=== PATIENT | female | born 2000 | race Two or more races ===

== ENCOUNTER 2023-03-29 14:33 | Emergency (ER) | payer OTHER ==
[~2023-03-29] VITALS: Ht 160 cm; Wt 56.7 kg
== END 2023-03-29 15:49 | disposition home or self-care (01) ==
LOC: ER 14:33
DX: J06.9 Acute upper respiratory infection, unspecified (principal)

== ENCOUNTER 2023-12-24 18:18 | Emergency (ER) | payer OTHER ==
[~2023-12-24] VITALS: Ht 160 cm; Wt 56.7 kg
[2023-12-24] MEDS ORDERED: LACTOBACILLUS ACIDOPHILUS 1 CAP CAP PO ONE (19:45)
[2023-12-24] MEDS ORDERED: 0.9 % SODIUM CHLORIDE 1,000 ML IV ONE (19:45)
[2023-12-24] MEDS ORDERED: ONDANSETRON HCL 2 MG/ML VIAL IV ONE (19:45)
[2023-12-24] MEDS ORDERED: FAMOTIDINE/PF 20 MG/2 ML VIAL IV ONE (19:45)
[2023-12-24 20:19] LABS: HEMATOCRIT 42.3 % (36.0-45.00); HEMOGLOBIN 14.5 g/dL (12.0-15.00); MEAN CORPUSCULAR HEMOGLOBIN 29.4 pg (27.00-32.0); MEAN CORPUSCULAR HGB CONC 34.2 g/dl (32.0-36.0); PLATELET COUNT 239 K/uL (150-450); RED BLOOD COUNT 4.92 M/uL (4.00-6.00); RED CELL DISTRIBUTION WIDTH 13.9 % (11.5-14.5)
[2023-12-24 20:43] LABS: ALBUMIN 4.2 gm/dL (3.4-5.0); BILIRUBIN TOTAL 0.6 mg/dL (0.3-1.2); CALCIUM 9.3 mg/dL (8.5-10.1); CREATININE SERUM 0.52 mg/dL (0.55-1.02); GFR 144.87; GLOBULINA 3.7 G/DL (2.4-3.5); POTASSIUM 3.29 mEq/L (3.5-5.1); TOTAL PROTEIN 7.9 gm/dL (6.4-8.2)
[2023-12-24 20:51] LABS: URINE APPEARANCE Clear; URINE BILIRRUBIN Negative (NEGATIVE); URINE BLOOD Negative; URINE COLOR Yellow; URINE GLUCOSE Negative (NEGATIVE); URINE LEUKOCYTE Trace; URINE NITRATE Negative; URINE PROTEIN Trace (NEGATIVE)
[2023-12-24 20:53] LABS: URINE BACTERIA 2241.5 uL (0.0-1933); URINE EPITHELIAL CELLS 33.2 uL (0.0-38.8); URINE RBC 112.9 uL (0.0-20.8)
[2023-12-24] MEDS ORDERED: ONDANSETRON ODT4 MG PO (21:15)
[2023-12-24] MEDS ORDERED: INTESTINEX680 M1 PO (21:15)
[2023-12-24] MEDS ORDERED: PEPCID AC20 MG PO (21:15)
== END 2023-12-24 21:28 ==
LOC: ER 18:19
PROVIDERS: Nurse Practitioner Family
DX: A05.9 Bacterial foodborne intoxication, unspecified (principal); Z20.822 Contact with and (suspected) exposure to COVID-19

== ENCOUNTER 2024-05-19 07:38 | Emergency (ER) | payer OTHER ==
[~2024-05-19] VITALS: Ht 162.6 cm; Wt 52.2 kg
[~2024-05-19 07:38] MED LIST: INTESTINEX680 M1 PO; ONDANSETRON ODT4 MG PO; PEPCID AC20 MG PO
[2024-05-19] MEDS ORDERED: 0.9 % SODIUM CHLORIDE 1,000 ML IV STA (08:28)
[2024-05-19 09:27] LABS: CREATININE SERUM 0.62 mg/dL (0.55-1.02); GFR 118.26; POTASSIUM 3.65 mEq/L (3.5-5.1)
[2024-05-19 09:52] LABS: URINE APPEARANCE Clear; URINE BILIRRUBIN Negative (NEGATIVE); URINE BLOOD Small; URINE COLOR Yellow; URINE GLUCOSE Negative (NEGATIVE); URINE KETONE Trace (NEGATIVE); URINE LEUKOCYTE Negative; URINE NITRATE Negative; URINE PROTEIN 30 (NEGATIVE)
[2024-05-19 09:54] LABS: URINE BACTERIA 372.9 uL (0.0-1933); URINE EPITHELIAL CELLS 34.3 uL (0.0-38.8); URINE RBC 65.9 uL (0.0-20.8); URINE WBC 4.3 uL (0.0-23.2)
[2024-05-19 10:01] LABS: URINE CAST 0.61 uL (0.0-1.40)
[2024-05-19 10:22] LABS: URINE CRYSTALS FEW /HPF; URINE MUCUS HEAVY
[2024-05-19 14:30] LABS: HEMATOCRIT 42.7 % (36.0-45.00); HEMOGLOBIN 14.8 g/dL (12.0-15.00); MEAN CELL VOLUME 86.9 fL (80.00-100.00); MEAN CORPUSCULAR HEMOGLOBIN 30.2 pg (27.00-32.0); MEAN CORPUSCULAR HGB CONC 34.8 g/dl (32.0-36.0); PLATELET COUNT 263 K/uL (150-450); RED BLOOD COUNT 4.91 M/uL (4.00-6.00); RED CELL DISTRIBUTION WIDTH 14.6 % (11.5-14.5)
[2024-05-19] MEDS ORDERED: PROMETHAZINE HCL 25 MG/ML AMPUL ONE (14:38)
[2024-05-19] MEDS ORDERED: PROMETHAZINE HCL 25 MG/ML AMPUL IM ONE (14:45)
== END 2024-05-19 16:14 | disposition home or self-care (01) ==
LOC: ER 07:39
PROVIDERS: Emergency Medicine
DX: K52.89 Other specified noninfective gastroenteritis and colitis (principal); R11.10 Vomiting, unspecified

== ENCOUNTER 2024-07-15 16:50 | Emergency (ER) | payer OTHER ==
[~2024-07-15] VITALS: Ht 160 cm; Wt 45.4 kg
[2024-07-15] MEDS ORDERED: PEPCID AC20 MG (17:37)
[2024-07-15] MEDS ORDERED: ZOFRAN8 MG (17:38)
[2024-07-15] MEDS ORDERED: PROTONIX40 MG PO (17:38)
[2024-07-15] MEDS ORDERED: ONDANSETRON HCL 2 MG/ML VIAL IV STA (17:47)
[2024-07-15 18:15] LABS: HEMATOCRIT 39.4 % (36.0-45.00); HEMOGLOBIN 13.6 g/dL (12.0-15.00); MEAN CELL VOLUME 86.6 fL (80.00-100.00); MEAN CORPUSCULAR HEMOGLOBIN 29.9 pg (27.00-32.0); MEAN CORPUSCULAR HGB CONC 34.5 g/dl (32.0-36.0); PLATELET COUNT 269 K/uL (150-450); RED BLOOD COUNT 4.54 M/uL (4.00-6.00); RED CELL DISTRIBUTION WIDTH 14.3 % (11.5-14.5)
[2024-07-15 18:34] LABS: URINE APPEARANCE Clear; URINE BILIRRUBIN Negative (NEGATIVE); URINE BLOOD Large; URINE COLOR Dark Yellow; URINE GLUCOSE Negative (NEGATIVE); URINE KETONE 15 (NEGATIVE); URINE LEUKOCYTE Negative; URINE NITRATE Negative; URINE PROTEIN Trace (NEGATIVE); URINE UROBILINOGEN 0.2 E.U./dl
[2024-07-15 18:38] LABS: URINE BACTERIA 66.7 uL (0.0-1933); URINE EPITHELIAL CELLS 11.5 uL (0.0-38.8); URINE RBC 386.1 uL (0.0-20.8); URINE WBC 15.2 uL (0.0-23.2)
[2024-07-15 18:40] LABS: CREATININE SERUM 0.61 mg/dL (0.55-1.02); GFR 120.5; POTASSIUM 3.04 mEq/L (3.5-5.1)
[2024-07-15 18:41] LABS: URINE CAST 1.37 uL (0.0-1.40)
[2024-07-15] MEDS ORDERED: KETOROLAC TROMETHAMINE 30 MG VIAL IV ONE (20:45)
== END 2024-07-15 20:51 | disposition home or self-care (01) ==
LOC: ER 16:51
PROVIDERS: Emergency Medicine
DX: R10.84 Generalized abdominal pain (principal)